=== PATIENT | male | born 1995 ===

== ENCOUNTER → 2020-06-21 | Outpatient (CLI) | payer OTHER | LOC: MHCPAIN 10:15 | DX: M47.817 Spondylosis without myelopathy or radiculopathy, lumbosacral region (principal); M53.3 Sacrococcygeal disorders, not elsewhere classified; M54.16 Radiculopathy, lumbar region; G89.29 Other chronic pain | CPT/HCPCS: G0463 ==

== ENCOUNTER → 2020-06-23 | Outpatient (CLI) | payer OTHER | LOC: MHCPAIN 09:45 | DX: M47.817 Spondylosis without myelopathy or radiculopathy, lumbosacral region (principal); M54.16 Radiculopathy, lumbar region | CPT/HCPCS: J1100; Q9967 ==